=== PATIENT | female | born 1980 | race Asian ===

== ENCOUNTER 2020-10-14 09:19 | Inpatient (IN) | payer BC, MEDICAID ==
[~2020-10-14] VITALS: Ht 162.6 cm; Wt 49.4 kg
[2020-10-14 09:25] VITALS: BP_SYST 162
[2020-10-14] MEDS ORDERED: NACL 0.9% 1,000 ML IV ONE (10:00)
[2020-10-14] MEDS ORDERED: ONDANSETRON HCL 4 MG/2 ML VIAL IVP ONE ×2 (10:00→11:15)
[2020-10-14 10:20] LABS: BASOPHILS # (AUTO) 0.1 K/uL (0.0-0.2); BASOPHILS % (AUTO) 0.6 % (0.0-2.0); HEMATOCRIT 41.3 % (36-48); LYMPHOCYTES # (AUTO) 1.6 K/uL (1.0-5.5); LYMPHOCYTES % (AUTO) 12.6 % (20.5-51.5); MEAN CORPUSCULAR HEMOGLOBIN 28 pg (27-31); MEAN CORPUSCULAR HGB CONC 34 % (32-36); MEAN CORPUSCULAR VOLUME 82 fL (79.0-98.0); MONOCYTES # (AUTO) 0.6 K/uL (0.0-1.0); MONOCYTES % (AUTO) 4.8 % (1.7-9.3); NEUTROPHILS # (AUTO) 10.4 K/uL (1.8-7.7); PLATELET COUNT (AUTO) 316 K/uL (130-430); RED BLOOD CELL COUNT(AUTO) 5.03 MIL/uL (4.2-6.2); RED CELL DISTRIBUTION WIDTH 14.2 % (9.0-15.0); WHITE BLOOD COUNT (AUTO) 12.7 K/uL (4.8-10.8)
[2020-10-14 10:26] LABS: CALCIUM 9.7 mg/dL (8.4-11.0); CREATININE 0.52 mg/dL (0.55-1.30); POTASSIUM 4.8 mmol/L (3.5-5.1)
[2020-10-14 10:32] LABS: ALBUMIN 4.5 g/dL (3.4-4.8); TOTAL BILIRUBIN 0.9 mg/dL (0.0-1.0)
[2020-10-14] MEDS ORDERED: ONDANSETRON HCL 4 MG/2 ML VIAL ONE (10:52)
[2020-10-14 11:24] LABS: BILIRUBIN,URINE NEGATIVE (NEGATIVE); BLOOD, URINE 1+ (NEGATIVE); COLOR,URINE YELLOW (YELLOW); GLUCOSE,URINE NEGATIVE (NEGATIVE); KETONES,URINE 2+ (NEGATIVE); LEUKOCYTE ESTERASE ,URINE NEGATIVE (NEGATIVE); NITRITE, URINE NEGATIVE (NEGATIVE); PROTEIN URINE 2+ (NEGATIVE); UROBILINOGEN,URINE 0.2 (0.2-1.0)
[2020-10-14 11:30] LABS: CLARITY/URINE HAZY (CLEAR)
[2020-10-14 11:42] LABS: BACTERIA,URINE FEW /HPF (None Seen); MUCUS,URINE 1+ /LPF (None Seen)
[2020-10-14 11:43] LABS: URINE AMORPHOUS PHOSPHATES 2+ /HPF (None Seen)
[2020-10-14] MEDS ORDERED: ONDANSETRON HCL 4 MG/2 ML VIAL IVP PRN (11:45)
[2020-10-14] MEDS ORDERED: PANTOPRAZOLE SODIUM 40 MG/VIAL (PROTONIX) IVP ONE (11:45)
[2020-10-14] MEDS ORDERED: LEVO125T PO (13:43)
[2020-10-14] MEDS ORDERED: ANAS1TAB PO (13:43)
[2020-10-14] MEDS ORDERED: OMEP-393 PO (13:43)
[2020-10-14] MEDS ORDERED: THC OIL (13:43)
[2020-10-14 14:54] VITALS: BP_SYST 115
[2020-10-14] MEDS: POTASSIUM CHLORIDE 10 MEQ in NACL 0.9% 1,000 ML IV SCH (16:16)
[2020-10-14 20:00] VITALS: BP_SYST 132
[2020-10-14] MEDS ORDERED: ACETAMINOPHEN 325 MG TABLET PO PRN (22:00)
[2020-10-14] MEDS ORDERED: MAG-AL HYDROX/SIMETH 30 ML UDC PO PRN (22:00)
[2020-10-15 00:50] VITALS: BP_SYST 128
[2020-10-15] MEDS: POTASSIUM CHLORIDE 10 MEQ in NACL 0.9% 1,000 ML IV SCH ×2 (02:41→12:32)
[2020-10-15 06:58] LABS: BASOPHILS # (AUTO) 0.1 K/uL (0.0-0.2); BASOPHILS % (AUTO) 0.7 % (0.0-2.0); EOSINOPHILS % (AUTO) 0.3 % (0.0-4.0); HEMATOCRIT 38.7 % (36-48); HEMOGLOBIN 12.9 g/dL (12.0-16.0); LYMPHOCYTES # (AUTO) 3.2 K/uL (1.0-5.5); LYMPHOCYTES % (AUTO) 34.9 % (20.5-51.5); MEAN CORPUSCULAR HEMOGLOBIN 28 pg (27-31); MEAN CORPUSCULAR HGB CONC 33 % (32-36); MEAN CORPUSCULAR VOLUME 83 fL (79.0-98.0); MONOCYTES # (AUTO) 0.7 K/uL (0.0-1.0); MONOCYTES % (AUTO) 7.9 % (1.7-9.3); NEUTROPHILS # (AUTO) 5.1 K/uL (1.8-7.7); NEUTROPHILS % (AUTO) 56.2 % (40.0-70.0); PLATELET COUNT (AUTO) 287 K/uL (130-430); RED BLOOD CELL COUNT(AUTO) 4.65 MIL/uL (4.2-6.2); RED CELL DISTRIBUTION WIDTH 14.7 % (9.0-15.0); WHITE BLOOD COUNT (AUTO) 9.1 K/uL (4.8-10.8)
[2020-10-15] MEDS ORDERED: LEVOTHYROXINE SODIUM 0.125 MG TABLET PO SCH (07:00)
[2020-10-15 07:51] LABS: ALBUMIN 3.7 g/dL (3.4-4.8); CALCIUM 8.7 mg/dL (8.4-11.0); CREATININE 0.62 mg/dL (0.55-1.30); POTASSIUM 3.6 mmol/L (3.5-5.1); THYROID STIMULATING HORMONE 0.48 uIu/mL (0.36-3.74); TOTAL BILIRUBIN 0.8 mg/dL (0.0-1.0)
[2020-10-15 08:03] VITALS: BP_SYST 116
[2020-10-15] MEDS ORDERED: PANTOPRAZOLE SODIUM 40 MG/VIAL (PROTONIX) IVP SCH (09:00)
[2020-10-15 15:17] VITALS: BP_SYST 116
== END 2020-10-15 16:16 | disposition home or self-care (01) | DRG 641 ==
LOC: SED 09:19 → STU 11:47
PROVIDERS: ADMIT Internal Medicine; ATTEND Internal Medicine
DX: E86.0 Dehydration (principal); C49.0 Malignant neoplasm of connective and soft tissue of head, face and neck; E89.0 Postprocedural hypothyroidism; T66.XXXA Radiation sickness, unspecified, initial encounter; G51.0 Bell's palsy; Z20.822 Contact with and (suspected) exposure to COVID-19; Z85.850 Personal history of malignant neoplasm of thyroid; Z92.3 Personal history of irradiation; Z85.3 Personal history of malignant neoplasm of breast; Z90.11 Acquired absence of right breast and nipple; Z80.8 Family history of malignant neoplasm of other organs or systems; Z88.8 Allergy status to other drugs, medicaments and biological substances; Z87.440 Personal history of urinary (tract) infections; Z86.16 Personal history of COVID-19; Z85.841 Personal history of malignant neoplasm of brain
CPT/HCPCS: 36415; 76376; 76705; 80053; 81000; 82150; 83690; 83735; 84443; 85025; 87086; 93005; 96374; 96375; 99285; C9113; G0378; J2405; J3480; J7030

== ENCOUNTER 2020-10-20 09:03 | Inpatient (IN) | payer BC, MEDICAID, SELFPAY ==
[~2020-10-20] VITALS: Ht 162.6 cm; Wt 48.4 kg
[~2020-10-20 09:03] MED LIST: ANAS1TAB PO; LEVO125T PO; OMEP-393 PO; THC OIL
[2020-10-20] MEDS ORDERED: ONDANSETRON HCL 4 MG/2 ML VIAL IVP ONE (09:15)
[2020-10-20] MEDS ORDERED: NACL 0.9% 1,000 ML IV ONE (09:15)
[2020-10-20] MEDS ORDERED: MORPHINE 4 MG INJ. 4 MG/ML VIAL IVP ONE (09:15)
[2020-10-20 09:18] VITALS: BP_SYST 172
[2020-10-20 10:08] LABS: BASOPHILS # (AUTO) 0.1 K/uL (0.0-0.2); BASOPHILS % (AUTO) 0.6 % (0.0-2.0); HEMATOCRIT 37.8 % (36-48); HEMOGLOBIN 12.7 g/dL (12.0-16.0); LYMPHOCYTES # (AUTO) 1.1 K/uL (1.0-5.5); LYMPHOCYTES % (AUTO) 13.3 % (20.5-51.5); MEAN CORPUSCULAR HEMOGLOBIN 28 pg (27-31); MEAN CORPUSCULAR HGB CONC 34 % (32-36); MEAN CORPUSCULAR VOLUME 82 fL (79.0-98.0); MONOCYTES # (AUTO) 0.2 K/uL (0.0-1.0); MONOCYTES % (AUTO) 2.7 % (1.7-9.3); NEUTROPHILS # (AUTO) 7.1 K/uL (1.8-7.7); NEUTROPHILS % (AUTO) 83.4 % (40.0-70.0); PLATELET COUNT (AUTO) 303 K/uL (130-430); RED BLOOD CELL COUNT(AUTO) 4.61 MIL/uL (4.2-6.2); RED CELL DISTRIBUTION WIDTH 14.5 % (9.0-15.0); WHITE BLOOD COUNT (AUTO) 8.5 K/uL (4.8-10.8)
[2020-10-20 10:18] LABS: ANION GAP 15 (5-15); CALCIUM 8.7 mg/dL (8.4-11.0); CHLORIDE 100 mmol/L (98-107); CREATININE 0.56 mg/dL (0.55-1.30); GFR AFRICAN AMERICAN 154 mL/min (>90); GLUCOSE 144 mg/dL (70-99); POTASSIUM 3.1 mmol/L (3.5-5.1); SODIUM SERUM 139 mmol/L (136-145); UREA NITROGEN, BLOOD 9 mg/dL (8-21)
[2020-10-20 10:28] LABS: PROTHROMBIN TIME 10.5 SECS (9.5-12.5)
[2020-10-20 10:33] LABS: ALANINE AMINOTRANSFERASE 33 U/L (12-78); ALBUMIN 3.9 g/dL (3.4-4.8); ASPARTATE AMINOTRANSFERASE 18 U/L (10-37); BILIRUBIN,DIRECT 0.1 mg/dL (0.0-0.3); FREE T4 (FREE THYROXINE) 1.1 ng/dl (0.8-1.5); LIPASE 38 U/L (73-393); THYROID STIMULATING HORMONE 0.74 uIu/mL (0.36-3.74); TOTAL BILIRUBIN 0.6 mg/dL (0.0-1.0)
[2020-10-20] MEDS ORDERED: HYDROmorphone 1 MG/ML INJ. CARTRIDGE IVP ONE ×2 (10:45→13:30)
[2020-10-20] MEDS ORDERED: KCL 40 mEq in 100 mL (PREMIX) 100 ML IV ONE (10:45)
[2020-10-20 10:47] LABS: BILIRUBIN,URINE NEGATIVE (NEGATIVE); BLOOD, URINE NEGATIVE (NEGATIVE); CLARITY/URINE CLEAR (CLEAR); COLOR,URINE YELLOW (YELLOW); GLUCOSE,URINE TRACE (NEGATIVE); KETONES,URINE 2+ (NEGATIVE); LEUKOCYTE ESTERASE ,URINE NEGATIVE (NEGATIVE); NITRITE, URINE NEGATIVE (NEGATIVE); PROTEIN URINE NEGATIVE (NEGATIVE); UROBILINOGEN,URINE 0.2 (0.2-1.0)
[2020-10-20] MEDS ORDERED: KCL 20 mEq in 100 mL (PREMIX) 200 ML IV ONE (10:57)
[2020-10-20] MEDS ORDERED: KCL 20 mEq in NS 1000 mL 1,000 ML IV SCH (11:15)
[2020-10-20 11:58] LABS: BARBITURATE, URINE NEGATIVE (NEG <=200); BENZODIAZEPINE, URINE NEGATIVE (NEG <=150); METHAMPHETAMINES SCREEN,URINE NEGATIVE (NEG <=500); URINE AMPHETAMINE NEGATIVE (NEG <=500); URINE METHADONE NEGATIVE (NEG <=200)
[2020-10-20 11:59] LABS: CANNABINOID, URINE POSITIVE (NEG <=50); COCAINE, URINE NEGATIVE (NEG <=150); OPIATE, URINE POSITIVE (NEG <=100); PHENCYCLIDINE SCREEN,URINE NEGATIVE (NEG <=25); UR TRICYCLIC ANTIDEPRESSANTS NEGATIVE (NEG <=300); URINE OXYCODONE SCREEN NEGATIVE (NEG <=100); URINE PROPOXYPHENE SCREEN NEGATIVE (NEG <=300)
[2020-10-20] MEDS ORDERED: HALOPERIDOL LACTATE 5 MG/ML VIAL IVP ONE (13:30)
[2020-10-20 14:35] VITALS: BP_SYST 136
[2020-10-20 15:38] VITALS: BP_SYST 126
[2020-10-20] MEDS ORDERED: NALOXONE HCL 0.4 MG/ML AMP (NARCAN) IVP PRN (16:30)
[2020-10-20] MEDS ORDERED: MORPHINE 2 MG/ML INJ. SYRINGE IVP PRN (16:30)
[2020-10-20] MEDS: ACETAMINOPHEN 500 MG TABLET PO PRN (16:40)
[2020-10-20] MEDS ORDERED: PANTOPRAZOLE SODIUM 40 MG/VIAL (PROTONIX) IVP ONE (17:00)
[2020-10-20] MEDS: POTASSIUM CHLORIDE 20 MEQ TAB.PRT.SR PO ONE ×2 (18:51→19:04)
[2020-10-20] MEDS: ONDANSETRON HCL 4 MG/2 ML VIAL IVP PRN (18:51)
[2020-10-20 20:00] VITALS: BP_SYST 149
[2020-10-20] MEDS ORDERED: MORPHINE 2 MG/ML INJ. SYRINGE ONE (21:09)
[2020-10-20] MEDS ORDERED: MORPHINE 2 MG/ML INJ. SYRINGE IVP ONE (21:15)
[2020-10-21] MEDS: ACETAMINOPHEN 500 MG TABLET PO PRN ×4 (00:03→20:15)
[2020-10-21] MEDS: KCL 20 mEq in NS 1000 mL 1,000 ML IV SCH ×3 (00:10→16:56)
[2020-10-21 00:30] VITALS: BP_SYST 142
[2020-10-21] MEDS: MORPHINE 2 MG/ML INJ. SYRINGE IVP PRN ×4 (04:30→23:00)
[2020-10-21] MEDS: ONDANSETRON HCL 4 MG/2 ML VIAL IVP PRN ×3 (04:31→18:14)
[2020-10-21] MEDS: LEVOTHYROXINE SODIUM 0.125 MG TABLET PO SCH (06:12)
[2020-10-21 06:48] LABS: BASOPHILS # (AUTO) 0.1 K/uL (0.0-0.2); BASOPHILS % (AUTO) 0.8 % (0.0-2.0); EOSINOPHILS % (AUTO) 0.1 % (0.0-4.0); HEMOGLOBIN 13.2 g/dL (12.0-16.0); LYMPHOCYTES # (AUTO) 1.4 K/uL (1.0-5.5); LYMPHOCYTES % (AUTO) 15.4 % (20.5-51.5); MEAN CORPUSCULAR HEMOGLOBIN 28 pg (27-31); MEAN CORPUSCULAR HGB CONC 34 % (32-36); MEAN CORPUSCULAR VOLUME 82 fL (79.0-98.0); MONOCYTES # (AUTO) 0.4 K/uL (0.0-1.0); MONOCYTES % (AUTO) 4.6 % (1.7-9.3); NEUTROPHILS % (AUTO) 79.1 % (40.0-70.0); PLATELET COUNT (AUTO) 348 K/uL (130-430); RED BLOOD CELL COUNT(AUTO) 4.78 MIL/uL (4.2-6.2); RED CELL DISTRIBUTION WIDTH 13.9 % (9.0-15.0); WHITE BLOOD COUNT (AUTO) 8.8 K/uL (4.8-10.8)
[2020-10-21 07:06] LABS: CALCIUM 9.1 mg/dL (8.4-11.0); CREATININE 0.45 mg/dL (0.55-1.30); POTASSIUM 3.9 mmol/L (3.5-5.1); TOTAL BILIRUBIN 0.7 mg/dL (0.0-1.0)
[2020-10-21 07:30] VITALS: BP_SYST 171
[2020-10-21] MEDS: PANTOPRAZOLE SODIUM 40 MG/VIAL (PROTONIX) IVP SCH (08:01)
[2020-10-21] MEDS: ANASTROZOLE 1 MG TABLET (ARIMIDEX) PO SCH (09:00)
[2020-10-21 11:21] VITALS: BP_SYST 145
[2020-10-21] MEDS: DIPHENHYDRAMINE HCL 12.5 MG/5 ML UDC PO PRN (14:41)
[2020-10-21 15:24] VITALS: BP_SYST 156
[2020-10-21 20:00] VITALS: BP_SYST 154
[2020-10-22 00:49] VITALS: BP_SYST 131
[2020-10-22] MEDS: KCL 20 mEq in NS 1000 mL 1,000 ML IV SCH ×3 (01:07→23:29)
[2020-10-22] MEDS: ONDANSETRON HCL 4 MG/2 ML VIAL IVP PRN (01:35)
[2020-10-22] MEDS: MORPHINE 2 MG/ML INJ. SYRINGE IVP PRN ×3 (03:37→19:57)
[2020-10-22] MEDS: LEVOTHYROXINE SODIUM 0.125 MG TABLET PO SCH (06:02)
[2020-10-22 07:03] LABS: BASOPHILS # (AUTO) 0.1 K/uL (0.0-0.2); BASOPHILS % (AUTO) 0.6 % (0.0-2.0); EOSINOPHILS % (AUTO) 0.1 % (0.0-4.0); HEMATOCRIT 39.7 % (36-48); HEMOGLOBIN 13.3 g/dL (12.0-16.0); LYMPHOCYTES # (AUTO) 1.8 K/uL (1.0-5.5); MEAN CORPUSCULAR HEMOGLOBIN 27 pg (27-31); MEAN CORPUSCULAR HGB CONC 33 % (32-36); MEAN CORPUSCULAR VOLUME 82 fL (79.0-98.0); MONOCYTES # (AUTO) 0.5 K/uL (0.0-1.0); MONOCYTES % (AUTO) 5.5 % (1.7-9.3); NEUTROPHILS # (AUTO) 6.4 K/uL (1.8-7.7); NEUTROPHILS % (AUTO) 72.8 % (40.0-70.0); PLATELET COUNT (AUTO) 374 K/uL (130-430); RED BLOOD CELL COUNT(AUTO) 4.85 MIL/uL (4.2-6.2); RED CELL DISTRIBUTION WIDTH 14.1 % (9.0-15.0); WHITE BLOOD COUNT (AUTO) 8.8 K/uL (4.8-10.8)
[2020-10-22] MEDS ORDERED: MIDAZOLAM HCL 5 MG/5 ML VIAL ONE (07:22)
[2020-10-22] MEDS ORDERED: MEPERIDINE 100 MG INJ. 100 MG/ML VIAL ONE (07:22)
[2020-10-22 07:23] LABS: CALCIUM 9.2 mg/dL (8.4-11.0); CREATININE 0.45 mg/dL (0.55-1.30); POTASSIUM 3.6 mmol/L (3.5-5.1)
[2020-10-22] MEDS ORDERED: ONDANSETRON HCL 4 MG/2 ML VIAL ONE (07:47)
[2020-10-22] MEDS ORDERED: ONDANSETRON HCL 4 MG/2 ML VIAL IVP ONE (08:00)
[2020-10-22] MEDS ORDERED: DIPHENHYDRAMINE INJ 50 MG/ML VIAL ONE (08:25)
[2020-10-22 09:00] VITALS: BP_SYST 134
[2020-10-22 09:13] LABS: PROTHROMBIN TIME 10.5 SECS (9.5-12.5)
[2020-10-22] MEDS: PANTOPRAZOLE SODIUM 40 MG/VIAL (PROTONIX) IVP SCH (09:20)
[2020-10-22] MEDS: ANASTROZOLE 1 MG TABLET (ARIMIDEX) PO SCH (09:20)
[2020-10-22 12:03] VITALS: BP_SYST 117
[2020-10-22] MEDS: ONDANSETRON HCL 4 MG/2 ML VIAL IVP SCH ×2 (12:10→17:45)
[2020-10-22 16:38] VITALS: BP_SYST 141
[2020-10-22] MEDS: ACETAMINOPHEN 500 MG TABLET PO PRN (18:01)
[2020-10-22 20:00] VITALS: BP_SYST 152
[2020-10-22] MEDS ORDERED: DEXAMETHASONE SOD PHOSPHATE 4 MG/ML VIAL IVP ONE (20:00)
[2020-10-22] MEDS: LORazepam 1 MG TABLET PO SCH (21:00)
[2020-10-23] VITALS: BP_SYST 148
[2020-10-23] MEDS: DEXAMETHASONE SOD PHOSPHATE 4 MG/ML VIAL IVP SCH ×5 (01:00→23:27)
[2020-10-23] MEDS: ONDANSETRON HCL 4 MG/2 ML VIAL IVP SCH ×6 (01:00→23:27)
[2020-10-23] MEDS: MORPHINE 2 MG/ML INJ. SYRINGE IVP PRN ×3 (01:10→14:06)
[2020-10-23] MEDS: DIPHENHYDRAMINE HCL 12.5 MG/5 ML UDC PO PRN (04:43)
[2020-10-23] MEDS: LEVOTHYROXINE SODIUM 0.125 MG TABLET PO SCH (06:45)
[2020-10-23 07:06] LABS: BASOPHILS % (AUTO) 0.1 % (0.0-2.0); HEMATOCRIT 40.7 % (36-48); HEMOGLOBIN 13.7 g/dL (12.0-16.0); LYMPHOCYTES # (AUTO) 0.9 K/uL (1.0-5.5); LYMPHOCYTES % (AUTO) 5.8 % (20.5-51.5); MEAN CORPUSCULAR HEMOGLOBIN 27 pg (27-31); MEAN CORPUSCULAR HGB CONC 34 % (32-36); MEAN CORPUSCULAR VOLUME 82 fL (79.0-98.0); MONOCYTES # (AUTO) 0.1 K/uL (0.0-1.0); MONOCYTES % (AUTO) 0.6 % (1.7-9.3); NEUTROPHILS # (AUTO) 14.4 K/uL (1.8-7.7); NEUTROPHILS % (AUTO) 93.5 % (40.0-70.0); PLATELET COUNT (AUTO) 363 K/uL (130-430); RED BLOOD CELL COUNT(AUTO) 4.99 MIL/uL (4.2-6.2); RED CELL DISTRIBUTION WIDTH 14.3 % (9.0-15.0); WHITE BLOOD COUNT (AUTO) 15.4 K/uL (4.8-10.8)
[2020-10-23 07:10] LABS: CALCIUM 9.2 mg/dL (8.4-11.0); CREATININE 0.47 mg/dL (0.55-1.30); POTASSIUM 3.7 mmol/L (3.5-5.1)
[2020-10-23 07:58] VITALS: BP_SYST 140
[2020-10-23] MEDS: LORazepam 1 MG TABLET PO SCH ×2 (08:38→21:00)
[2020-10-23] MEDS: PANTOPRAZOLE SODIUM 40 MG/VIAL (PROTONIX) IVP SCH (08:38)
[2020-10-23] MEDS: ANASTROZOLE 1 MG TABLET (ARIMIDEX) PO SCH (08:38)
[2020-10-23] MEDS: KCL 20 mEq in NS 1000 mL 1,000 ML IV SCH ×2 (08:42→21:49)
[2020-10-23 12:37] VITALS: BP_SYST 132
[2020-10-23 16:19] VITALS: BP_SYST 126
[2020-10-23 20:00] VITALS: BP_SYST 98
[2020-10-24] VITALS: BP_SYST 103
[2020-10-24] MEDS: KCL 20 mEq in NS 1000 mL 1,000 ML IV SCH ×2 (05:47→15:45)
[2020-10-24] MEDS: LEVOTHYROXINE SODIUM 0.125 MG TABLET PO SCH (05:48)
[2020-10-24] MEDS: ONDANSETRON HCL 4 MG/2 ML VIAL IVP SCH ×3 (05:48→17:57)
[2020-10-24] MEDS: DEXAMETHASONE SOD PHOSPHATE 4 MG/ML VIAL IVP SCH ×3 (05:48→17:57)
[2020-10-24] MEDS: MORPHINE 2 MG/ML INJ. SYRINGE IVP PRN (06:19)
[2020-10-24 07:39] LABS: CALCIUM 8.6 mg/dL (8.4-11.0); CREATININE 0.42 mg/dL (0.55-1.30); POTASSIUM 3.7 mmol/L (3.5-5.1)
[2020-10-24 07:40] LABS: HEMATOCRIT 36.4 % (36-48); HEMOGLOBIN 12.1 g/dL (12.0-16.0); LYMPHOCYTES # (AUTO) 1.1 K/uL (1.0-5.5); LYMPHOCYTES % (AUTO) 8.5 % (20.5-51.5); MEAN CORPUSCULAR HEMOGLOBIN 27 pg (27-31); MEAN CORPUSCULAR HGB CONC 33 % (32-36); MEAN CORPUSCULAR VOLUME 82 fL (79.0-98.0); MONOCYTES # (AUTO) 0.5 K/uL (0.0-1.0); MONOCYTES % (AUTO) 3.5 % (1.7-9.3); NEUTROPHILS # (AUTO) 11.5 K/uL (1.8-7.7); PLATELET COUNT (AUTO) 356 K/uL (130-430); RED BLOOD CELL COUNT(AUTO) 4.46 MIL/uL (4.2-6.2); RED CELL DISTRIBUTION WIDTH 14.6 % (9.0-15.0); WHITE BLOOD COUNT (AUTO) 13.1 K/uL (4.8-10.8)
[2020-10-24 08:00] VITALS: BP_SYST 150
[2020-10-24] MEDS: ANASTROZOLE 1 MG TABLET (ARIMIDEX) PO SCH ×2 (08:10→08:13)
[2020-10-24] MEDS: PANTOPRAZOLE SODIUM 40 MG/VIAL (PROTONIX) IVP SCH (08:10)
[2020-10-24] MEDS: LORazepam 1 MG TABLET PO SCH (08:10)
[2020-10-24] MEDS ORDERED: NALOXONE HCL 0.4 MG/ML AMP (NARCAN) IVP PRN ×2 (08:45)
[2020-10-24] MEDS: HYDROmorphone 1 MG/ML INJ. CARTRIDGE IVP PRN ×3 (09:07→16:21)
[2020-10-24] MEDS ORDERED: METOCLOPRAMIDE HCL 10 MG/2 ML VIAL IVP ONE (12:00)
[2020-10-24] MEDS ORDERED: PROMETHAZINE HCL 25 MG TABLET PO PRN (12:30)
[2020-10-24] MEDS ORDERED: DIATR MEGLU/DIATRIZ SOD 30 ML SOLUTION PO ONE (12:37)
[2020-10-24 12:58] VITALS: BP_SYST 111
[2020-10-24 17:48] VITALS: BP_SYST 139
[2020-10-24] MEDS ORDERED: METOCLOPRAMIDE HCL 10 MG/2 ML VIAL IVP SCH (18:00)
[2020-10-24 20:00] VITALS: BP_SYST 151
[2020-10-25] VITALS: BP_SYST 123
[2020-10-25] MEDS: DEXAMETHASONE SOD PHOSPHATE 4 MG/ML VIAL IVP SCH ×5 (00:10→23:23)
[2020-10-25] MEDS: ONDANSETRON HCL 4 MG/2 ML VIAL IVP SCH ×5 (00:10→23:23)
[2020-10-25] MEDS: KCL 20 mEq in NS 1000 mL 1,000 ML IV SCH ×3 (00:10→20:08)
[2020-10-25] MEDS: HYDROmorphone 1 MG/ML INJ. CARTRIDGE IVP PRN ×4 (06:14→23:24)
[2020-10-25 06:43] LABS: BASOPHILS % (AUTO) 0.1 % (0.0-2.0); LYMPHOCYTES # (AUTO) 1.5 K/uL (1.0-5.5); LYMPHOCYTES % (AUTO) 11.4 % (20.5-51.5); MEAN CORPUSCULAR HEMOGLOBIN 27 pg (27-31); MEAN CORPUSCULAR HGB CONC 33 % (32-36); MEAN CORPUSCULAR VOLUME 82 fL (79.0-98.0); MONOCYTES # (AUTO) 0.4 K/uL (0.0-1.0); MONOCYTES % (AUTO) 3.1 % (1.7-9.3); NEUTROPHILS # (AUTO) 11.1 K/uL (1.8-7.7); NEUTROPHILS % (AUTO) 85.4 % (40.0-70.0); PLATELET COUNT (AUTO) 367 K/uL (130-430); RED BLOOD CELL COUNT(AUTO) 4.37 MIL/uL (4.2-6.2); RED CELL DISTRIBUTION WIDTH 14.5 % (9.0-15.0)
[2020-10-25] MEDS: LEVOTHYROXINE SODIUM 0.125 MG TABLET PO SCH (06:52)
[2020-10-25 07:00] LABS: ALBUMIN 3.5 g/dL (3.4-4.8); CREATININE 0.54 mg/dL (0.55-1.30); POTASSIUM 4.3 mmol/L (3.5-5.1); TOTAL BILIRUBIN 0.6 mg/dL (0.0-1.0)
[2020-10-25 08:00] VITALS: BP_SYST 152
[2020-10-25] MEDS: ANASTROZOLE 1 MG TABLET (ARIMIDEX) PO SCH (09:00)
[2020-10-25] MEDS: PANTOPRAZOLE SODIUM 40 MG/VIAL (PROTONIX) IVP SCH (09:19)
[2020-10-25 11:26] VITALS: BP_SYST 160
[2020-10-25] MEDS: LORazepam 2 MG/ML VIAL IVP PRN ×2 (13:18→20:04)
[2020-10-25] MEDS ORDERED: GADOBENATE DIMEGLUMINE 529 MG/ML, 15 ML VIAL IV ONE (13:53)
[2020-10-25 15:28] VITALS: BP_SYST 113
[2020-10-25 20:00] VITALS: BP_SYST 136
[2020-10-26] VITALS: BP_SYST 108
[2020-10-26] MEDS: DEXAMETHASONE SOD PHOSPHATE 4 MG/ML VIAL IVP SCH ×2 (06:03→11:43)
[2020-10-26] MEDS: LEVOTHYROXINE SODIUM 0.125 MG TABLET PO SCH (06:04)
[2020-10-26] MEDS: KCL 20 mEq in NS 1000 mL 1,000 ML IV SCH (06:04)
[2020-10-26] MEDS: ONDANSETRON HCL 4 MG/2 ML VIAL IVP SCH ×2 (06:04→11:43)
[2020-10-26 08:00] VITALS: BP_SYST 108
[2020-10-26 08:51] LABS: BASOPHILS % (AUTO) 0.3 % (0.0-2.0); HEMATOCRIT 39.3 % (36-48); HEMOGLOBIN 12.8 g/dL (12.0-16.0); LYMPHOCYTES # (AUTO) 1.4 K/uL (1.0-5.5); LYMPHOCYTES % (AUTO) 11.5 % (20.5-51.5); MEAN CORPUSCULAR HEMOGLOBIN 27 pg (27-31); MEAN CORPUSCULAR HGB CONC 33 % (32-36); MEAN CORPUSCULAR VOLUME 84 fL (79.0-98.0); MONOCYTES # (AUTO) 0.4 K/uL (0.0-1.0); MONOCYTES % (AUTO) 3.2 % (1.7-9.3); NEUTROPHILS # (AUTO) 10.5 K/uL (1.8-7.7); PLATELET COUNT (AUTO) 314 K/uL (130-430); RED BLOOD CELL COUNT(AUTO) 4.69 MIL/uL (4.2-6.2); RED CELL DISTRIBUTION WIDTH 14.5 % (9.0-15.0); WHITE BLOOD COUNT (AUTO) 12.4 K/uL (4.8-10.8)
[2020-10-26] MEDS: PANTOPRAZOLE SODIUM 40 MG/VIAL (PROTONIX) IVP SCH (09:07)
[2020-10-26] MEDS: ANASTROZOLE 1 MG TABLET (ARIMIDEX) PO SCH (09:12)
[2020-10-26 09:38] LABS: CALCIUM 8.7 mg/dL (8.4-11.0); CREATININE 0.54 mg/dL (0.55-1.30); POTASSIUM 4.1 mmol/L (3.5-5.1)
[2020-10-26 12:18] VITALS: BP_SYST 106
[2020-10-26 13:56] VITALS: BP_SYST 106
[2020-10-26] MEDS: HYDROmorphone 1 MG/ML INJ. CARTRIDGE IVP PRN (14:52)
== END 2020-10-26 15:00 | disposition short-term general hospital (02) | DRG 392 ==
LOC: SED 09:03 → SMU 11:14
PROVIDERS: ADMIT Internal Medicine; ATTEND Internal Medicine
PROC: 0DB78ZX Excision of Stomach, Pylorus, Via Natural or Artificial Opening Endoscopic, Diagnostic (ICD-10-PCS; principal; 2020-10-22 07:30)
DX: K29.70 Gastritis, unspecified, without bleeding (principal); E87.6 Hypokalemia; C76.0 Malignant neoplasm of head, face and neck; E89.0 Postprocedural hypothyroidism; E86.0 Dehydration; D72.829 Elevated white blood cell count, unspecified; D49.6 Neoplasm of unspecified behavior of brain; G51.0 Bell's palsy; Z20.822 Contact with and (suspected) exposure to COVID-19; Z92.3 Personal history of irradiation; Z85.850 Personal history of malignant neoplasm of thyroid; Z90.11 Acquired absence of right breast and nipple; Z85.3 Personal history of malignant neoplasm of breast; Z86.718 Personal history of other venous thrombosis and embolism; Z85.841 Personal history of malignant neoplasm of brain; Z88.8 Allergy status to other drugs, medicaments and biological substances; Z79.899 Other long term (current) drug therapy; Z87.440 Personal history of urinary (tract) infections
CPT/HCPCS: 36415; 43239; 70450-TC; 70553; 71045; 76376; 80048; 80053; 80076; 80307; 81003; 82150; 82533; 83690; 83735; 83880; 84439; 84443; 84484; 85025; 85610-TC; 85730-TC; 87081; 87086; 88305; 88312; 88313; 93005; 96361; 96365; 96375; 96376; 99285; A9577; C9113; J1100; J1170; J1200; J1630; J2060; J2175; J2250; J2270; J2405; J2765; J3480; Q0169; Q9964; Q9967